=== PATIENT | male | born 1965 | race African-American/Black ===

== ENCOUNTER 2020-07-15 05:41 | Day surgery (SDC) | payer BC ==
[2020-07-03 10:03] LABS: BASOPHILS % (AUTO) 6.4 % (0.0-2.0); EOSINOPHILS % (AUTO) 2.6 % (0.0-3.0); HEMATOCRIT 48.9 % (42.0-52.0); HEMOGLOBIN 15.4 G/DL (14.2-18.0); LYMPHOCYTES % (AUTO) 27.9 % (20.0-45.0); MEAN CORPUSCULAR VOLUME 98 FL (80-99); MONOCYTES % (AUTO) 16.4 % (1.0-10.0); NEUTROPHILS % (AUTO) 46.8 % (45.0-75.0); PLATELET COUNT 390 K/UL (150-450); RED BLOOD COUNT 4.99 M/UL (4.70-6.10); RED CELL DISTRIBUTION WIDTH 13.5 % (11.6-14.8); WHITE BLOOD COUNT 5.5 K/UL (4.8-10.8)
[2020-07-03 10:35] LABS: ANION GAP 8 mmol/L (5-15); BLOOD UREA NITROGEN 9 mg/dL (7-18); CARBON DIOXIDE 27 MMOL/L (21-32); CHLORIDE 105 MMOL/L (98-107); POTASSIUM 4.5 MMOL/L (3.5-5.1); SODIUM 140 MMOL/L (136-145)
--- NOTE | 2020-07-03 13:07 | Diagnostic Imaging Report ---
Procedure: XRAY Chest 2v Reason for study: Cough Comparison films: None. FINDINGS: Frontal and lateral views of the chest are obtained. Vascularity is normal. There is slight diffuse interstitial prominence but no acute alveolar process. Cardiac and mediastinal silhouette are within normal limits. CP angles are sharp. The bony thorax appear unremarkable. IMPRESSION: Interstitial prominence but no acute alveolar process.
--- NOTE | 2020-07-08 14:52 | Opthalmology H&P ---
Ophthalmology H&P H&P Chief Complaint: decreased vision in left eye HPI Vision Affects Ability to: read, focus/use eyes together, manage personal affairs HPI Narrative Blurry vision Exam Visual Acuity: OD 20/HM OS 20/50 Tension: OD 13 OS 15 Eye Exam: normal OU: external exam, palpebral fissure-width, marginal reflex distance, levator function, corneas, anterior chambers, lens - PSEUDO OD, NS Cataract OS, fundus exam; findings: lens - PSEUDO OD, NS Cataract OS Assessment/Plan Treatment Plan: cataract extraction w/ lens implant Goals of Treatment: improvement of vision, enhance quality of life Attestation Attestation The risks and benefits of the surgery as well as alternative procedures were explained to the patient in detail. Nigel Barrow MD Jul 08, 2020 14:52
--- NOTE | 2020-07-08 14:54 | Pre-Procedure Note/Attestation ---
Pre-Procedure Note/Attestation Complete Prior to Procedure Planned Procedure: left Procedure Narrative: Cataract extraction with IOL implant left eye Indications for Procedure Pre-Operative Diagnosis: Nuclear sclerotic cataract left eye Attestation I attest that I discussed the nature of the procedure; its benefits; risks and complications; and alternatives (and the risks and benefits of such alternatives), prior to the procedure, with the patient (or the patient's legal wire rope sales representative). I attest that, if there was a reasonable possibility of needing a blood transfusion, the patient (or the patient's legal wire rope sales representative) was given the [facility] standardized written summary, pursuant to the [place] Blood Safety Act ([place] Health and Safety Code # 1645, as amended). I attest that I re-evaluated the patient just prior to the surgery and that there has been no change in the patient's H&P, except as documented below: Nigel Barrow MD Jul 08, 2020 14:54
--- NOTE | 2020-07-09 02:02 | Cardiology Report ---
APPROVED REPORT EKG Measurement Heart [id number] <Conclusion> Unusual P axis, possible ectopic atrial bradycardia Abnormal ECG
[2020-07-15] VITALS (7 sets, daily range): BP systolic 131–176; BP diastolic 67–78
[~2020-07-15] VITALS: Ht 172.7 cm; Wt 68.0 kg
[~2020-07-15 05:41] MED LIST: NKM
[2020-07-15] MEDS: Phenylephrine 10% Opth Soln 5ml LEFT EYE SCH ×3 (06:07→06:31)
[2020-07-15] MEDS: Tropicamide 1% Opth 15ml Soln LEFT EYE SCH ×3 (06:07→06:31)
[2020-07-15] MEDS ORDERED: Akten 3.5% 1ml Btl LEFT EYE ONE (07:00)
[2020-07-15] MEDS ORDERED: Tetracaine 0.5% Opth 4ml Soln LEFT EYE ONE (07:00)
[2020-07-15] MEDS ORDERED: Proparacaine 0.5% Opth Soln 15ml LEFT EYE ONE (07:00)
[2020-07-15] MEDS ORDERED: EPINEPHrine 1mg/1ml Amp ONE ×2 (07:09→08:04)
[2020-07-15] MEDS ORDERED: Lidocaine 2% MPF 5ml Vial INJ ONE (07:10)
[2020-07-15] MEDS ORDERED: Lidocaine 4% Amp 5ml ONE (07:10)
[2020-07-15] MEDS ORDERED: acetaZOLAMIDE 500mg Inj ONE (07:10)
[2020-07-15] MEDS ORDERED: BSS 500ml btl ONE ×2 (07:10→08:05)
[2020-07-15] MEDS ORDERED: Carbachol 0.01% Op Soln 1.5ml vial ONE (07:10)
[2020-07-15] MEDS ORDERED: Bupivacaine 0.75% 30ml vial INJ ONE (07:11)
[2020-07-15] MEDS ORDERED: Povidone-Iodine 5% opth solution ONE (07:11)
[2020-07-15] MEDS ORDERED: BSS 15ml BTL ONE (07:11)
[2020-07-15] MEDS ORDERED: Sodium Hyaluronate 10 mg/ml 0.85ml ONE (07:11)
[2020-07-15] MEDS ORDERED: Lidocaine 1% MPF 10mg/ml 5ml ONE (07:50)
[2020-07-15] MEDS ORDERED: fentaNYL 100 mcg/2 mL IV ONE (07:50)
[2020-07-15] MEDS ORDERED: Midazolam 2mg/2ml Inj ONE (07:51)
[2020-07-15] MEDS ORDERED: LR 1000ml ONE (08:00)
[2020-07-15] MEDS ORDERED: Sterile Water Irrig 1000ml IRRIG ONE (08:00)
[2020-07-15] MEDS ORDERED: NS Irrig 1000ml ONE (08:00)
--- NOTE | 2020-07-15 08:05 | Anethesia Preoperative Eval ---
Anesthesia Pre-op PMH/ROS General Date of Evaluation: Jul 15, 2020 Anesthesiologist: Cipriano ASA Score: ASA 2 Mallampati Score Class I : Soft palate, uvula, fauces, pillars visible Class II: Soft palate, uvula, fauces visible Class III: Soft palate, base of uvula visible Class IV: Only hard plate visible Mallampati Classification: Class I Surgeon: Herbert Diagnosis: left cataract Surgical Procedure: left catarct extraction with IOL Anesthesia History: none Family History: no anesthesia problems Allergies: Coded Allergies: No Known Allergies (Unverified , 04/01/16) Medications: see eMAR Patient NPO?: Yes NPO Date: Jul 15, 2020 NPO Time: 00:00 Past Medical History Cardiovascular: Denies: HTN, CAD, AL, valve dz, arrhythmia, other Pulmonary: Denies: asthma, COPD, CHU, other Gastrointestinal/Genitourinary: Reports: GERD; Denies: CRI, ESRD, other Neurologic/Psychiatric: Denies: dementia, CVA, depression/anxiety, TIA, other Endocrine: Denies: DM, hypothyroidism, steroids, other HEENT: Denies: cataract (L), cataract (R), glaucoma, [place] (L), [place] (R), other Hematology/Immune: Denies: anemia, DVT, bleeding disorder, other Musculoskeletal/Integumentary: Denies: OA, RA, DJD, DDD, edema, other PSxH Narrative: right cataract Anesthesia Pre-op Phys. Exam Physician Exam Last Vital Signs Date Time Temp Pulse Resp B/P (MAP) Pulse Ox O2 Delivery O2 Flow Rate FiO2 07/15/20 06:11 Room Air 07/15/20 06:11 97.7 58 18 176/78 100 Constitutional: NAD Cardiovascular: RRR Respiratory: CTA Airway Exam Mallampati Score: Class I MO: full ROM: full Anesthesia Pre-op A/P Labs see chart Studies Pre-op Studies: EKG - sr Risk Assessment & Plan Assessment: ASA II Plan: MAC Status Change Before Surgery: No Pre-Antibiotics Drug: N/A Lorie Cota MD Jul 15, 2020 08:05
[2020-07-15] MEDS ORDERED: LR 1000ml 1,000 ML IVLG SCH (08:15)
[2020-07-15] MEDS ORDERED: DiphenhydrAMINE 50mg/ml Inj IVP PRN (08:15)
--- NOTE | 2020-07-15 08:44 | Immediate Post-Op Evaluation ---
Immediate Post-Op Evalulation Immediate Post-Op Evalulation Procedure: left cataract extraction with IOL Date of Evaluation: Jul 15, 2020 Time of Evaluation: 08:48 IV Fluids: 200 Blood Products: 0 Estimated Blood Loss: 0 Urinary Output: 0 Blood Pressure Systolic: 150 Blood Pressure Diastolic: 76 Pulse Rate: 63 Respiratory Rate: 16 O2 Sat by Pulse Oximetry: 100 Temperature (Fahrenheit): 99.4 Pain Score (1-10): 0 Nausea: No Vomiting: No Complications 0 Patient Status: awake, reacts, patent, none Hydration Status: adequate Drug: N/A Lorie Cota MD Jul 15, 2020 08:44
--- NOTE | 2020-07-15 08:45 | 48 Hour Post Anesthesia Eval ---
Post Anesthesia Evaluation Procedure: left cataract extraction with IOL Date of Evaluation: Jul 15, 2020 Airway: patent Nausea: No Vomiting: No Pain Intensity: 0 Hydration Status: adequate Cardiopulmonary Status: at baseline Mental Status/LOC: patient returned to baseline Post-Anesthesia Complications: 0 Follow-up care needed: ready to discharge Lorie Cota MD Jul 15, 2020 08:45
--- NOTE | 2020-07-15 15:07 | Brief Operative Note ---
Immediate Post Operative Note Operative Note Chief Complaint: Blurry vision Pre-op Diagnosis: Nuclear sclerotic cataract left eye Procedure: Cataract extraction with IOL implant left eye Post-op Diagnosis: Pseudophakia OS Findings: consistent w/pre-op dx studies Surgeon: Nigel Barrow MD Anesthesiologist: Lorie Cota MD Anesthesia: MAC Specimen: none Complications: none Condition: stable Fluids: LR Estimated Blood Loss: none Drains: none Implant(s) used?: Yes - IOL-OS Nigel Barrow MD Jul 15, 2020 15:07
--- NOTE | 2020-07-15 15:29 | Operative Note - PDOC ---
Operative Note Operative Note Date of Operation/Procedure: Jul 15, 2020 Chief Complaint: Blurry vision Pre-op Diagnosis: Nuclear sclerotic cataract left eye Procedure: Cataract extraction with IOL implant left eye Post-op Diagnosis: Pseudophakia OS Operative Findings: consistent w/pre-op dx studies Surgeon: Nigel Barrow MD Anesthesiologist: Lorie Cota MD Anesthesia: MAC Specimen: none Complications: none Condition: stable Fluids: LR Estimated Blood Loss: none Drains: none Implant(s) used?: Yes - IOL-OS Indications for Procedure Nuclear sclerotic cataract left eye Description of Procedure This patient has been complaining visually significant cataract in the left eye with the best corrected visual acuity of hand motion. The patient complains of visual imbalance causing headaches daily, and difficulties with glare in performing activities of daily living he wants to manage personal affairs with comfort and accuracy and see well enough to move with safety at home and outdo ors. The risks, benefits and alternatives of the procedure were discussed with the patient in the office prior to scheduling surgery. All questions from the patient were answered after the surgical procedure was explained in detail. The risks of the procedure as explained to the patient include, but are not limited to, pain, infection, bleeding, loss of vision, retinal detachment, need for further surgery, loss of lens nucleus, double vision, etc. Alternative procedur es were discussed which include, to do nothing or seek a second opinion. Informed consent for this procedure was obtained from the patient. The patient was referred to a primary care physician for a cardiopulmonary clearance prior to surgery, after proper evaluation was done patient was properly scheduled for outpatient surgery. The patient was brought to the operating room where the anesthesiologist established I.V. lines and cardiac monitoring leads. Mild intravenous sedation was administered. The patient was then prepared with a 5% solution of povidone-iodine to the conjunctival fornix and lashes, and a 5% solution of povidone-iodine to the lids and periorbital skin. The patient was then draped in the usual sterile fashion. A lid speculum was then placed in the operative eye. A keratome blade was then used to create a biplanar incision into the anterior chamber. Viscoelastics was then instilled into the anterior chamber. A 3-mm single pass clear corneal incision was made just anterior to the vascular arcade of the temporal limbus using a keratome. Anterior capsulorrhexis was created. The nucleus was hydrodissected and hydrodelineated, and was freely movable in the capsular bag. The lens nucleus was then phacoemulsified. Following the deep groove formation, the lens was split bimanually and the resultant quadrants and epicortex removed under vacuum burst-mode phacoemulsification. Peripheral cortex was removed with the irrigation and aspiration handpiece. The capsular bag was expanded with viscoelastic. The implant was check for proper power and sized. The implant was inspected under the microscope and found to be free of defects. The implant was inserted into the cartridge system under viscoelastic and placed in the capsular bag. The trailing haptic was positioned with the cartridge system. Viscoelastics was removed from the anterior chamber using the irrigation and aspiration unit. The corneal wound was then tested for leaks and none were found. The lid speculum were then removed. Sponge and needle counts were correct. An eye patch and shield were placed over the operative eye. The patient was taken to the recovery room in stable condition. There were no complications. The patient tolerated the procedure well. The patient was then transferred to the ambulatory surgery unit in stable and satisfactory condition, was given detailed written instructions and asked to follow up in the office the next day. Nigel Barrow MD Jul 15, 2020 15:29
== END 2020-07-15 09:15 | disposition home or self-care (01) ==
LOC: SUR 05:41
DX: H25.12 Age-related nuclear cataract, left eye (principal); K21.9 Gastro-esophageal reflux disease without esophagitis
CPT/HCPCS: 36415; 66984; 71046; 80048; 85025; 85610; 85730; 93005; 94003; J0171; J2250; J3010; J3370; J7120; U0004; V2632; 94150